=== PATIENT | female | born 1955 | race Caucasian/White ===

== ENCOUNTER 2017-05-16 15:59 | Inpatient (IN) | payer MEDICARE, MEDICAID ==
[~2017-05-16] VITALS: Ht 160 cm; Wt 56.7 kg
--- NOTE | 2017-05-16 16:27 | Emergency Room Report ---
History of Present Illness General Chief Complaint: General Complaint Source: Patient, PMD Present Illness HPI 61-year-old female sent for suspected failure to thrive, low appetite. PMD was also concern for episode of psychoses, patient well known to [facility] psychiatrist Dr. Mckay Patient herself denies any complaints: States she ate multiple meatballs today. Eyes abdominal pain nausea vomiting, urinary complaints, chest pain, shortness of breath. Patient is very calm, cooperative. Does not appear psychotic or altered. Patient ambulate back and forth to the bathroom under her own power Dr. Mckay endorses 30 pound weight loss over the last 2 months. Allergies: Coded Allergies: No Known Allergies (Unverified , 05/16/17) Patient History Past Medical History: psych hx Past Surgical History: none Pertinent Family History: none Social History: Denies: smoking, alcohol use, drug use Now: No Immunizations: UTD Reviewed Nursing Documentation: PMH: Agreed, PSxH: Agreed Review of Systems All Other Systems: negative except mentioned in HPI Physical Exam Vital Signs Date Time Temp Pulse Resp B/P (MAP) Pulse Ox O2 Delivery O2 Flow Rate FiO2 05/16/17 15:58 97.9 70 20 121/69 95 Room Air Sp02 EP Interpretation: reviewed, normal General Appearance: normal inspection, well appearing, no apparent distress, alert, GCS 15, non-toxic Head: normocephalic, atraumatic Eyes: bilateral eye PERRL, bilateral eye EOMI ENT: normal ENT inspection, hearing grossly normal, normal pharynx, no angioedema, normal voice, TMs + canals normal, uvula midline, moist mucus membranes Neck: normal inspection, full range of motion, supple, thyroid normal, no meningismus, no bony tend Respiratory: normal inspection, lungs clear, normal breath sounds, no rhonchi, no respiratory distress, no retraction, no accessory muscle use, no wheezing, speaking full sentences Cardiovascular #1: regular rate, rhythm, no edema, no JVD, normal capillary refill Gastrointestinal: normal inspection, normal bowel sounds, non tender, soft, no mass, no peritonitis, non-distended, no guarding, no hernia, no pulsatile mass Genitourinary: no CVA tenderness Musculoskeletal: normal inspection, back normal, normal range of motion, no calf tenderness, pelvis stable, Rio's Sign negative Neurologic: normal inspection, alert, oriented x3, responsive, pediatric medical assistant III-XII nml as tested, motor strength/tone normal, cerebellar normal, normal gait, speech normal Psychiatric: normal inspection, judgement/insight normal, mood/affect normal, no suicidal/homicidal ideation, no delusions Skin: normal inspection, normal color, no rash Lymphatic: normal inspection, no adenopathy Medical Decision Making Diagnostic Impression: Primary Impression: FTT (failure to thrive) in adult Additional Impression: REEMA (acute kidney injury) ER Course 61-year-old female with a 30 pound weight loss over 2 months vital signs stable, afebrile labs significant only for mild REEMA serum creatinine 1.5 Was given IV fluid hydration ER She remains asymptomatic She is not psychotic, calm and cooperative Endorsed to Dr. Angeles as PMD at 5:20 PM for a Medr bed EKG Diagnostic Results Rate: normal Rhythm: NSR ST Segments: other - Isolated T-wave inversion in V2 ASA given to the pt in ED: No Rhythm Strip Diag. Results EP Interpretation: yes Rate: 63 Rhythm: NSR, no PVC's, no ectopy Last Vital Signs Date Time Temp Pulse Resp B/P (MAP) Pulse Ox O2 Delivery O2 Flow Rate FiO2 05/16/17 15:58 97.9 70 20 121/69 95 Room Air Status: improved Disposition: ADMITTED INPATIENT Condition: Stable VÍCTOR LANZA M.D. May 16, 2017 16:27
[2017-05-16 16:48] LABS: BASOPHILS % (AUTO) 1.3 % (0.0-2.0); EOSINOPHILS % (AUTO) 0.2 % (0.0-3.0); HEMATOCRIT 39.7 % (37.0-47.0); HEMOGLOBIN 13.6 G/DL (12.0-16.0); LYMPHOCYTES % (AUTO) 26.4 % (20.0-45.0); MEAN CORPUSCULAR VOLUME 95 FL (80-99); MONOCYTES % (AUTO) 8.4 % (1.0-10.0); NEUTROPHILS % (AUTO) 63.7 % (45.0-75.0); PLATELET COUNT 165 K/UL (150-450); RED BLOOD COUNT 4.17 M/UL (4.20-5.40); RED CELL DISTRIBUTION WIDTH 11.5 % (11.6-14.8); WHITE BLOOD COUNT 4.2 K/UL (4.8-10.8)
[2017-05-16 16:59] LABS: ANION GAP 6 mmol/L (5-15); BLOOD UREA NITROGEN 26 mg/dL (7-18); CALCIUM 9.2 MG/DL (8.5-10.1); CARBON DIOXIDE 32 MMOL/L (21-32); CHLORIDE 105 MMOL/L (98-107); CREATININE 1.5 MG/DL (0.55-1.30); POTASSIUM 4.7 MMOL/L (3.5-5.1); SODIUM 142 MMOL/L (136-145)
--- NOTE | 2017-05-16 17:00 | Diagnostic Imaging Report ---
Indication: Cough Technique: One view of the chest Comparison: Findings: Lungs and pleural spaces are clear. Heart size is normal Impression: No acute process
[2017-05-16 17:08] VITALS: BP 112/76
[2017-05-16 17:11] LABS: ALANINE AMINOTRANSFERASE 24 U/L (12-78); ALBUMIN 3.9 G/DL (3.4-5.0); ALBUMIN/GLOBULIN RATIO 1.4 (1.0-2.7); ALKALINE PHOSPHATASE 75 U/L (46-116); ASPARTATE AMINO TRANSFERASE 21 U/L (15-37); BILIRUBIN,TOTAL 0.3 MG/DL (0.2-1.0); CKMB 3.6 NG/ML (0.0-3.6); CREATINE KINASE 169 U/L (26-308)
[2017-05-16] MEDS ORDERED: LEVOTHYROXINE50 MCG ORAL (18:00)
[2017-05-16] MEDS ORDERED: FLUPHENAZINE HCL5 MG IM (18:00)
[2017-05-16] MEDS ORDERED: RISPERDAL1 MG PO (18:00)
[2017-05-16] MEDS ORDERED: QUETIAPINE FUM400 MG ORAL (18:00)
[2017-05-16] MEDS ORDERED: ABILIFY20 MG ORAL (18:00)
[2017-05-16] MEDS ORDERED: TEMAZEPAM30 MG ORAL (18:00)
[2017-05-16 18:29] VITALS: BP 111/54
[2017-05-16 20:00] VITALS: BP 97/48
[2017-05-16] MEDS ORDERED: Mylanta II UD 30ml ORAL PRN (21:00)
[2017-05-16] MEDS ORDERED: Morphine Sulfate 2mg/ml Inj IVP PRN (21:00)
[2017-05-16] MEDS ORDERED: Zolpidem 5mg tab ORAL PRN (21:00)
[2017-05-16] MEDS ORDERED: Miralax 17gm pkt ORAL PRN (21:00)
[2017-05-16] MEDS ORDERED: LORazepam Inj 2mg/ml 1ml IV PRN (21:00)
[2017-05-16] MEDS: Heparin 5000 units/ml inj SUBQ SCH (21:46)
[2017-05-17] VITALS: BP 111/63
[2017-05-17 04:00] VITALS: BP 107/60
[2017-05-17 08:06] VITALS: BP 112/71
[2017-05-17] MEDS: Heparin 5000 units/ml inj SUBQ SCH ×2 (09:00→20:04)
[2017-05-17] MEDS ORDERED: ARIPiprazole 10mg tab ORAL SCH (09:00)
[2017-05-17] MEDS ORDERED: QUEtiapine 200mg tab ORAL SCH (09:00)
[2017-05-17 11:49] VITALS: BP 110/54
--- NOTE | 2017-05-17 15:57 | History and Physical ---
History of Present Illness General Date patient seen: May 17, 2017 Reason for Hospitalization: General Complaint Present Illness HPI 61-year-old female with psychiatric disorder sent for suspected failure to thrive, low appetite, 30 pound weight loss over the last 2 months PMD was also concern for episode of psychoses, patient well known to [facility] psychiatrist Dr. Mckay She is admitted for w/u of weight loss and failure to thrive. Her BMI is 22. Allergies: Coded Allergies: No Known Allergies (Unverified , 05/16/17) Medication History Scheduled Aripiprazole* (Abilify*), 20 MG ORAL DAILY, (Reported) Fluphenazine Hcl* (Prolixin*), 25 MG IM EVERY 2 WEEKS, (Reported) Levothyroxine Sodium* (Levothyroxine Sodium*), 50 MCG ORAL DAILY, (Reported) Quetiapine Fumarate* (Quetiapine Fumarate*), 400 MG ORAL DAILY, (Reported) Risperidone* (Risperdal*), 3 MG PO BID, (Reported) Scheduled PRN Temazepam* (Temazepam*), 30 MG ORAL BEDTIME PRN for Insomnia, (Reported) Patient History Healthcare decision maker N Resuscitation status Full Code Advanced Directive on File No Past Medical/Surgical History Past Medical/Surgical History: (1) Psychosis Review of Systems All Other Systems: negative except mentioned in HPI Physical Exam General Appearance: WD/WN Lines, tubes and drains: peripheral HEENT: normocephalic Neck: non-tender, normal alignment Respiratory/Chest: chest wall non-tender, lungs clear Breasts: no masses Cardiovascular/Chest: normal peripheral pulses Abdomen: normal bowel sounds Genitourinary/Rectal: normal genital exam Last 24 Hour Vital Signs Date Time Temp Pulse Resp B/P (MAP) Pulse Ox O2 Delivery O2 Flow Rate FiO2 05/17/17 11:49 97.9 66 21 110/54 97 Room Air 05/17/17 08:06 98.1 71 21 112/71 99 Room Air 05/17/17 04:00 97.4 63 20 107/60 99 05/17/17 00:00 97.7 62 20 111/63 99 05/16/17 20:00 98.1 63 21 97/48 96 05/16/17 18:29 97.6 63 18 111/54 97 Room Air 05/16/17 17:08 99.1 60 18 112/76 100 Room Air 05/16/17 15:58 97.9 70 20 121/69 95 Room Air Intake and Output 05/16/17 05/17/17 19:00 07:00 Intake Total 50 ml Balance 50 ml Intake Oral 50 ml # Voids 1 6 # Bowel Movements 1 Laboratory Tests Test 05/16/17 16:17 05/16/17 16:30 Urine Opiates Screen Negative (NEGATIVE) Urine Barbiturates Screen Negative (NEGATIVE) Phencyclidine (PCP) Screen Negative (NEGATIVE) Urine Amphetamines Screen Negative (NEGATIVE) Urine Benzodiazepines Screen Negative (NEGATIVE) Urine Cocaine Screen Negative (NEGATIVE) Urine Marijuana (THC) Screen Negative (NEGATIVE) White Blood Count 4.2 K/UL (4.8-10.8) L Red Blood Count 4.17 M/UL (4.20-5.40) L Hemoglobin 13.6 G/DL (12.0-16.0) Hematocrit 39.7 % (37.0-47.0) Mean Corpuscular Volume 95 FL (80-99) Mean Corpuscular Hemoglobin 32.7 PG (27.0-31.0) H Mean Corpuscular Hemoglobin Concent 34.4 G/DL (32.0-36.0) Red Cell Distribution Width 11.5 % (11.6-14.8) L Platelet Count 165 K/UL (150-450) Mean Platelet Volume 9.1 FL (6.5-10.1) Neutrophils (%) (Auto) 63.7 % (45.0-75.0) Lymphocytes (%) (Auto) 26.4 % (20.0-45.0) Monocytes (%) (Auto) 8.4 % (1.0-10.0) Eosinophils (%) (Auto) 0.2 % (0.0-3.0) Basophils (%) (Auto) 1.3 % (0.0-2.0) Sodium Level 142 MMOL/L (136-145) Potassium Level 4.7 MMOL/L (3.5-5.1) Chloride Level 105 MMOL/L (98-107) Carbon Dioxide Level 32 MMOL/L (21-32) Anion Gap 6 mmol/L (5-15) Blood Urea Nitrogen 26 mg/dL (7-18) H Creatinine 1.5 MG/DL (0.55-1.30) H Estimat Glomerular Filtration Rate 35.2 mL/min (>60) Glucose Level 98 MG/DL (74-106) Calcium Level 9.2 MG/DL (8.5-10.1) Total Bilirubin 0.3 MG/DL (0.2-1.0) Aspartate Amino Transf (AST/SGOT) 21 U/L (15-37) Alanine Aminotransferase (ALT/SGPT) 24 U/L (12-78) Alkaline Phosphatase 75 U/L (46-116) Total Creatine Kinase 169 U/L (26-308) Creatine Kinase MB 3.6 NG/ML (0.0-3.6) Creatine Kinase MB Relative Index 2.1 Troponin I 0.000 ng/mL (0.000-0.056) Total Protein 6.6 G/DL (6.4-8.2) Albumin 3.9 G/DL (3.4-5.0) Globulin 2.7 g/dL Albumin/Globulin Ratio 1.4 (1.0-2.7) Height (Feet): 5 Height (Inches): 3.00 Weight (Pounds): 125 Medications Current Medications Medications (Trade) Dose Ordered Sig/Ashli Route PRN Reason Start Time Stop Time Status Last Admin Dose Admin Acetaminophen (Tylenol) 650 mg Q4H PRN ORAL fever 05/16/17 21:00 06/15/17 20:59 Al Hydroxide/Mg Hydroxide (Mylanta II) 30 ml Q6H PRN ORAL dyspepsia 05/16/17 21:00 06/15/17 20:59 Dextrose (Dextrose 50%) STAT PRN IV Hypoglycemia 05/16/17 21:00 06/15/17 20:59 Divalproex Sodium (Depakote ER) 1,000 mg QPM ORAL 05/17/17 18:00 06/16/17 20:59 Heparin Sodium (Porcine) (Heparin 5000 units/ml) 5,000 units EVERY 12 HOURS SUBQ 05/16/17 22:00 06/15/17 21:59 05/16/17 21:46 Levothyroxine Sodium (Synthroid) 50 mcg ACBREAKFAST ORAL 05/17/17 06:30 06/16/17 06:29 05/17/17 06:14 Lorazepam (Ativan 2mg/ml 1ml) 0.5 mg Q4H PRN IV For Anxiety 05/16/17 21:00 05/23/17 20:59 Morphine Sulfate (Morphine Sulfate) 1 mg Q4H PRN IVP For Pain Scale 4-10 05/16/17 21:00 05/23/17 20:59 Nicotine (Nicoderm) 1 patch Q24H TDERMAL 05/17/17 12:00 06/16/17 11:59 Olanzapine (ZyPREXA) 15 mg QPM ORAL 05/17/17 18:00 06/16/17 20:59 Ondansetron HCl (Zofran) 4 mg Q6H PRN IVP Nausea & Vomiting 05/16/17 21:00 06/15/17 20:59 Polyethylene Glycol (Miralax) 17 gm HSPRN PRN ORAL Constipation 05/16/17 21:00 06/15/17 20:59 Assessment/Plan Problem List: (1) Psychosis ICD Codes: F29 - Unspecified psychosis not due to a substance or known physiological condition SNOMED: 98276693 (2) REEMA (acute kidney injury) ICD Codes: N17.9 - Acute kidney failure, unspecified SNOMED: 64909829 (3) FTT (failure to thrive) in adult ICD Codes: R62.7 - Adult failure to thrive SNOMED: 140344896 (4) Encounter for generalized patient complaints ICD Codes: Z00.8 - Encounter for other general examination SNOMED: 011340952 Assessment/Plan calorie count GI evaluation psych evaluaton renal studies. WILBUR LOPES May 17, 2017 15:57
[2017-05-17 15:58] VITALS: BP 120/77
--- NOTE | 2017-05-17 16:18 | Consultation ---
History of Present Illness General Date patient seen: May 17, 2017 Chief Complaint: General Complaint Present Illness HPI 61-year-old female sent for suspected failure to thrive, low appetite, schizophrenia and mood lability was admitted due to lack of appetite and weight loss. The pt was observed eating. the pt has cognitive impairment and is a poor historian. the pt is delusional and is denying depressive sxs. no si/hi. Allergies: Coded Allergies: No Known Allergies (Unverified , 05/16/17) Medication History Scheduled Aripiprazole* (Abilify*), 20 MG ORAL DAILY, (Reported) Fluphenazine Hcl* (Prolixin*), 25 MG IM EVERY 2 WEEKS, (Reported) Levothyroxine Sodium* (Levothyroxine Sodium*), 50 MCG ORAL DAILY, (Reported) Quetiapine Fumarate* (Quetiapine Fumarate*), 400 MG ORAL DAILY, (Reported) Risperidone* (Risperdal*), 3 MG PO BID, (Reported) Scheduled PRN Temazepam* (Temazepam*), 30 MG ORAL BEDTIME PRN for Insomnia, (Reported) Patient History History Provided By: Patient, Medical Record, PMD Healthcare decision maker N Resuscitation status Full Code Advanced Directive on File No Past Medical/Surgical History Past Medical/Surgical History: (1) Encounter for generalized patient complaints (2) REEMA (acute kidney injury) (3) Psychosis (4) FTT (failure to thrive) in adult Review of Systems Psychiatric: Reports: prior hx, anxiety, depressed feelings, emotional problems , hallucinations Physical Exam General Appearance: WD/WN, no apparent distress, alert, thin Neurologic: alert, oriented x 3, responsive, depressed affect Last 24 Hour Vital Signs Date Time Temp Pulse Resp B/P (MAP) Pulse Ox O2 Delivery O2 Flow Rate FiO2 05/17/17 15:58 98.1 69 19 120/77 97 05/17/17 11:49 97.9 66 21 110/54 97 Room Air 05/17/17 08:06 98.1 71 21 112/71 99 Room Air 05/17/17 04:00 97.4 63 20 107/60 99 05/17/17 00:00 97.7 62 20 111/63 99 05/16/17 20:00 98.1 63 21 97/48 96 05/16/17 18:29 97.6 63 18 111/54 97 Room Air 05/16/17 17:08 99.1 60 18 112/76 100 Room Air Intake and Output 05/16/17 05/17/17 19:00 07:00 Intake Total 50 ml Balance 50 ml Intake Oral 50 ml # Voids 1 6 # Bowel Movements 1 Laboratory Tests Test 05/16/17 16:17 05/16/17 16:30 Urine Opiates Screen Negative (NEGATIVE) Urine Barbiturates Screen Negative (NEGATIVE) Phencyclidine (PCP) Screen Negative (NEGATIVE) Urine Amphetamines Screen Negative (NEGATIVE) Urine Benzodiazepines Screen Negative (NEGATIVE) Urine Cocaine Screen Negative (NEGATIVE) Urine Marijuana (THC) Screen Negative (NEGATIVE) White Blood Count 4.2 K/UL (4.8-10.8) L Red Blood Count 4.17 M/UL (4.20-5.40) L Hemoglobin 13.6 G/DL (12.0-16.0) Hematocrit 39.7 % (37.0-47.0) Mean Corpuscular Volume 95 FL (80-99) Mean Corpuscular Hemoglobin 32.7 PG (27.0-31.0) H Mean Corpuscular Hemoglobin Concent 34.4 G/DL (32.0-36.0) Red Cell Distribution Width 11.5 % (11.6-14.8) L Platelet Count 165 K/UL (150-450) Mean Platelet Volume 9.1 FL (6.5-10.1) Neutrophils (%) (Auto) 63.7 % (45.0-75.0) Lymphocytes (%) (Auto) 26.4 % (20.0-45.0) Monocytes (%) (Auto) 8.4 % (1.0-10.0) Eosinophils (%) (Auto) 0.2 % (0.0-3.0) Basophils (%) (Auto) 1.3 % (0.0-2.0) Sodium Level 142 MMOL/L (136-145) Potassium Level 4.7 MMOL/L (3.5-5.1) Chloride Level 105 MMOL/L (98-107) Carbon Dioxide Level 32 MMOL/L (21-32) Anion Gap 6 mmol/L (5-15) Blood Urea Nitrogen 26 mg/dL (7-18) H Creatinine 1.5 MG/DL (0.55-1.30) H Estimat Glomerular Filtration Rate 35.2 mL/min (>60) Glucose Level 98 MG/DL (74-106) Calcium Level 9.2 MG/DL (8.5-10.1) Total Bilirubin 0.3 MG/DL (0.2-1.0) Aspartate Amino Transf (AST/SGOT) 21 U/L (15-37) Alanine Aminotransferase (ALT/SGPT) 24 U/L (12-78) Alkaline Phosphatase 75 U/L (46-116) Total Creatine Kinase 169 U/L (26-308) Creatine Kinase MB 3.6 NG/ML (0.0-3.6) Creatine Kinase MB Relative Index 2.1 Troponin I 0.000 ng/mL (0.000-0.056) Total Protein 6.6 G/DL (6.4-8.2) Albumin 3.9 G/DL (3.4-5.0) Globulin 2.7 g/dL Albumin/Globulin Ratio 1.4 (1.0-2.7) Height (Feet): 5 Height (Inches): 3.00 Weight (Pounds): 125 Medications Current Medications Medications (Trade) Dose Ordered Sig/Ashli Route PRN Reason Start Time Stop Time Status Last Admin Dose Admin Acetaminophen (Tylenol) 650 mg Q4H PRN ORAL fever 05/16/17 21:00 06/15/17 20:59 Al Hydroxide/Mg Hydroxide (Mylanta II) 30 ml Q6H PRN ORAL dyspepsia 05/16/17 21:00 06/15/17 20:59 Dextrose (Dextrose 50%) STAT PRN IV Hypoglycemia 05/16/17 21:00 06/15/17 20:59 Divalproex Sodium (Depakote ER) 1,000 mg QPM ORAL 05/17/17 18:00 06/16/17 20:59 Heparin Sodium (Porcine) (Heparin 5000 units/ml) 5,000 units EVERY 12 HOURS SUBQ 05/16/17 22:00 06/15/17 21:59 05/16/17 21:46 Levothyroxine Sodium (Synthroid) 50 mcg ACBREAKFAST ORAL 05/17/17 06:30 06/16/17 06:29 05/17/17 06:14 Lorazepam (Ativan 2mg/ml 1ml) 0.5 mg Q4H PRN IV For Anxiety 05/16/17 21:00 05/23/17 20:59 Morphine Sulfate (Morphine Sulfate) 1 mg Q4H PRN IVP For Pain Scale 4-10 05/16/17 21:00 05/23/17 20:59 Nicotine (Nicoderm) 1 patch Q24H TDERMAL 05/17/17 12:00 06/16/17 11:59 Olanzapine (ZyPREXA) 15 mg QPM ORAL 05/17/17 18:00 06/16/17 20:59 Ondansetron HCl (Zofran) 4 mg Q6H PRN IVP Nausea & Vomiting 05/16/17 21:00 06/15/17 20:59 Polyethylene Glycol (Miralax) 17 gm HSPRN PRN ORAL Constipation 05/16/17 21:00 06/15/17 20:59 Assessment/Plan Status: unchanged Assessment/Plan schizoaffective d/o failure to thrive -depakote er 1000mg qhs -zyprexa 15mg qhs -dc seroMadonna Mac M.D. May 17, 2017 16:17
--- NOTE | 2017-05-17 16:40 | GI Initial Consult Note ---
Malinda Garcia NShiraPShira 05/17/17 1640: History of Present Illness General Date patient seen: May 17, 2017 Time patient seen: 11:00 Reason for Hospitalization: General Complaint Referring physician: WILBUR ERIC Reason for Consultation: FTT Present Illness HPI 61-year-old female sent for suspected failure to thrive, low appetite. PMD was also concern for episode of psychoses, patient well known to [place] psychiatrist Dr. Mckay Patient herself denies any complaints: States she ate multiple meatballs today. Denies abdominal pain nausea vomiting, urinary complaints, chest pain, shortness of breath. Patient is very calm, cooperative. Does not appear psychotic or altered. Patient ambulate back and forth to the bathroom under her own power Dr. Mckay endorses 30 pound weight loss over the last 2 months. GI consulted for FTT. HPI noted above. Pt seen on floor, awake A&Ox4 NAD with no active s/sx of N/V/D. Patient denies any abdominal pain, reported to have eaten 100% of her breakfast. Ambulatory. Unknown history of endoscopy/ colonoscopy. Home Meds Reported Medications Divalproex Sodium (Depakote) 500 Mg Tablet.dr, 1000 MG PO QHS, TAB 05/19/17 Olanzapine* (ZYPREXA*) 10 Mg Tablet, 20 MG ORAL QHS, #30 TAB 0 Refills 05/19/17 Fluphenazine Hcl* (PROLIXIN*) 5 Mg Tablet, 25 MG IM EVERY 2 WEEKS, #10 TAB 0 Refills 05/16/17 Risperidone* (RISPERDAL*) 1 Mg Tablet, 3 MG PO BID, TAB 05/16/17 Aripiprazole* (ABILIFY*) 20 Mg Tablet, 20 MG ORAL DAILY, TAB 05/16/17 Temazepam* (TEMAZEPAM*) 30 Mg Capsule, 30 MG ORAL BEDTIME Y for Insomnia, CAP 05/16/17 Quetiapine Fumarate* (QUETIAPINE FUMARATE*) 400 Mg Tablet, 400 MG ORAL DAILY, TAB 05/16/17 Levothyroxine Sodium* (LEVOTHYROXINE SODIUM*) 50 Mcg Tablet, 50 MCG ORAL DAILY, TAB Take in the morning on an empty stomach, at least 30 minutes before food. 05/16/17 Med list reviewed/reconciled: Yes Allergies: Coded Allergies: No Known Allergies (Unverified , 05/16/17) Patient History Limited by: medical condition History Provided By: Patient, Medical Record PMH Narrative Past Medical History: psych hx Past Surgical History: none Pertinent Family History: none Social History: Denies: smoking, alcohol use, drug use Now: No Immunizations: UTD Reviewed Nursing Documentation: PMH: Agreed, PSxH: Agreed Social History: Reports: smoking Review of Systems All Other Systems: negative except mentioned in HPI Physical Exam Vital Signs Date Time Temp Pulse Resp B/P (MAP) Pulse Ox O2 Delivery O2 Flow Rate FiO2 05/16/17 15:58 97.9 70 20 121/69 95 Room Air Sp02 EP Interpretation: reviewed, normal Labs Laboratory Tests Test 05/17/17 16:18 Urine Color Pending Urine Appearance Pending Urine pH Pending Urine Specific [place] Pending Urine Protein Pending Urine Glucose (UA) Pending Urine Ketones Pending Urine Occult Blood Pending Urine Nitrite Pending Urine Bilirubin Pending Urine Urobilinogen Pending Urine Leukocyte Esterase Pending Urine RBC Pending Urine WBC Pending Urine Squamous Epithelial Cells Pending Urine Bacteria Pending Urine Eosinophils Pending Urine Random Sodium Pending Urine Potassium Timed Pending General Appearance: well appearing, no apparent distress, alert Head: normocephalic EENT: PERRL/EOMI, normal ENT inspection Neck: supple Respiratory: normal breath sounds, no respiratory distress Cardiovascular: normal rate Gastrointestinal: normal inspection, non tender, soft, normal bowel sounds, non -distended Rectal: deferred Genitourinary: no CVA tenderness Musculoskeletal: normal inspection, back normal Neurologic: normal inspection, alert, oriented x3, responsive Psychiatric: normal inspection, judgement/insight normal, memory normal Skin: normal inspection, normal color, no rash, warm/dry, palpation normal, well hydrated Lymphatic: normal inspection, no adenopathy Current Medications Current Medications Medications (Trade) Dose Ordered Sig/Ashli Route PRN Reason Start Time Stop Time Status Last Admin Dose Admin Acetaminophen (Tylenol) 650 mg Q4H PRN ORAL fever 05/16/17 21:00 06/15/17 20:59 Al Hydroxide/Mg Hydroxide (Mylanta II) 30 ml Q6H PRN ORAL dyspepsia 05/16/17 21:00 06/15/17 20:59 Dextrose (Dextrose 50%) STAT PRN IV Hypoglycemia 05/16/17 21:00 06/15/17 20:59 Divalproex Sodium (Depakote ER) 1,000 mg QPM ORAL 05/17/17 18:00 06/16/17 20:59 Heparin Sodium (Porcine) (Heparin 5000 units/ml) 5,000 units EVERY 12 HOURS SUBQ 05/16/17 22:00 06/15/17 21:59 05/16/17 21:46 Levothyroxine Sodium (Synthroid) 50 mcg ACBREAKFAST ORAL 05/17/17 06:30 06/16/17 06:29 05/17/17 06:14 Lorazepam (Ativan 2mg/ml 1ml) 0.5 mg Q4H PRN IV For Anxiety 05/16/17 21:00 05/23/17 20:59 Morphine Sulfate (Morphine Sulfate) 1 mg Q4H PRN IVP For Pain Scale 4-10 05/16/17 21:00 05/23/17 20:59 Nicotine (Nicoderm) 1 patch Q24H TDERMAL 05/17/17 12:00 06/16/17 11:59 Olanzapine (ZyPREXA) 15 mg QPM ORAL 05/17/17 18:00 06/16/17 20:59 Ondansetron HCl (Zofran) 4 mg Q6H PRN IVP Nausea & Vomiting 05/16/17 21:00 06/15/17 20:59 Polyethylene Glycol (Miralax) 17 gm HSPRN PRN ORAL Constipation 05/16/17 21:00 06/15/17 20:59 GI: Plan Problems: (1) FTT (failure to thrive) in adult Plan utox negative symptomatic treatment fu calorie count push PO electrolyte correction fu labs, CEA Discussed with Dr. Treviño. Thank you for this patient referral, we will follow. JOSE TREVIÑO 05/21/17 1413: History of Present Illness General Reason for Hospitalization: General Complaint Present Illness Home Meds Reported Medications Divalproex Sodium (Depakote) 500 Mg Tablet., 1000 MG PO QHS, TAB 05/19/17 Olanzapine* (ZYPREXA*) 10 Mg Tablet, 20 MG ORAL QHS, #30 TAB 0 Refills 05/19/17 Fluphenazine Hcl* (PROLIXIN*) 5 Mg Tablet, 25 MG IM EVERY 2 WEEKS, #10 TAB 0 Refills 05/16/17 Risperidone* (RISPERDAL*) 1 Mg Tablet, 3 MG PO BID, TAB 05/16/17 Aripiprazole* (ABILIFY*) 20 Mg Tablet, 20 MG ORAL DAILY, TAB 05/16/17 Temazepam* (TEMAZEPAM*) 30 Mg Capsule, 30 MG ORAL BEDTIME Y for Insomnia, CAP 05/16/17 Quetiapine Fumarate* (QUETIAPINE FUMARATE*) 400 Mg Tablet, 400 MG ORAL DAILY, TAB 05/16/17 Levothyroxine Sodium* (LEVOTHYROXINE SODIUM*) 50 Mcg Tablet, 50 MCG ORAL DAILY, TAB Take in the morning on an empty stomach, at least 30 minutes before food. 05/16/17 Allergies: Coded Allergies: No Known Allergies (Unverified , 05/16/17) GI: Plan Plan The patient was seen and examined at bedside and all new and available data was reviewed in the patients chart. I agree with the above findings, impression and plan. (Patient seen earlier today. Signature stamp does not reflect patient encounter time.). - MD Radha Kumar Anh Austin Wynn May 17, 2017 16:40 JOSE TREVIÑO May 21, 2017 14:13
[2017-05-17 16:50] LABS: APPEARANCE,URINE CLEAR; BILIRUBIN, URINE NEGATIVE (NEGATIVE); COLOR,URINE PALE YELLOW; GLUCOSE, URINE (UA) NEGATIVE (NEGATIVE); KETONES,URINE NEGATIVE (NEGATIVE); LEUKOCYTE ESTERASE ,URINE 3+ (NEGATIVE); NITRITE,URINE NEGATIVE (NEGATIVE); PH,URINE 6 (4.5-8.0); PROTEIN,URINE NEGATIVE (NEGATIVE); UROBILINOGEN,URINE NORMAL MG/DL (0.0-1.0)
[2017-05-17] MEDS: Depakote ER 250mg tab ORAL SCH (17:46)
[2017-05-17 20:00] VITALS: BP 108/66
[2017-05-17] MEDS ORDERED: Depakote ER 250mg tab ORAL SCH (21:00)
[2017-05-18] VITALS: BP 113/65
[2017-05-18 04:00] VITALS: BP 127/71
[2017-05-18 08:00] VITALS: BP 119/70
--- NOTE | 2017-05-18 08:32 | Diagnostic Imaging Report ---
Indication: Abdominal pain, stage I chronic renal failure Technique: Grayscale and duplex images of the kidneys, retroperitoneum, and bladder were obtained. Comparison: none Findings: Exam is limited due to suboptimal patient cooperation. Right kidney measures 10.3 cm in length. Left kidney could not be visualized, obscured by bowel gas.. Right kidney demonstrates normal echogenicity. No hydronephrosis. A few cysts measuring up to 19 mm diameter seen in the right kidney. Possible calyceal calcifications versus artifact seen in the right kidney. Normal inferior vena cava. Bladder is normal. Postvoid bladder volume could not be measured as patient did not wish to void. Prevoid volume 72 mL Impression: Limited exam, due to nonvisualization of the left kidney Negative for right hydronephrosis Incidental finding right renal cysts. Questionable renal parenchymal calcifications, versus artifacts.
[2017-05-18] MEDS: Heparin 5000 units/ml inj SUBQ SCH ×2 (09:00→20:02)
--- NOTE | 2017-05-18 11:52 | GI Progress Note ---
Assessment/Plan Problems: (1) Encounter for generalized patient complaints ICD Codes: Z00.8 - Encounter for other general examination SNOMED: 676322556 (2) FTT (failure to thrive) in adult ICD Codes: R62.7 - Adult failure to thrive SNOMED: 189881953 (3) Psychosis ICD Codes: F29 - Unspecified psychosis not due to a substance or known physiological condition SNOMED: 13776108 Status: stable Status Narrative Discussed with Dr. Little. Assessment/Plan refused labs utox negative symptomatic treatment >> okay for DC per GI standpoint fu calorie count >> has eaten 100% of all her meals push PO electrolyte correction fu labs, CEA Subjective Gastrointestinal/Abdominal: Reports: no symptoms Objective Last 24 Hour Vital Signs Date Time Temp Pulse Resp B/P (MAP) Pulse Ox O2 Delivery O2 Flow Rate FiO2 05/18/17 08:00 98.2 67 20 119/70 98 Room Air 05/18/17 04:00 98.2 68 20 127/71 98 Room Air 05/18/17 00:00 98.8 61 19 113/65 97 Room Air 05/17/17 20:00 98.5 60 19 108/66 99 Room Air 05/17/17 15:58 98.1 69 19 120/77 97 Intake and Output 05/17/17 05/18/17 19:00 07:00 Intake Total 720 ml 500 ml Balance 720 ml 500 ml Intake Oral 720 ml 500 ml # Voids 4 Laboratory Tests Test 05/17/17 16:18 Urine Color Pale yellow Urine Appearance Clear Urine pH 6 (4.5-8.0) Urine Specific [place] 1.010 (1.005-1.035) Urine Protein Negative (NEGATIVE) Urine Glucose (UA) Negative (NEGATIVE) Urine Ketones Negative (NEGATIVE) Urine Occult Blood 1+ (NEGATIVE) H Urine Nitrite Negative (NEGATIVE) Urine Bilirubin Negative (NEGATIVE) Urine Urobilinogen Normal MG/DL (0.0-1.0) Urine Leukocyte Esterase 3+ (NEGATIVE) H Urine RBC 2-4 /HPF (0 - 2) H Urine WBC 5-10 /HPF (0 - 2) H Urine Squamous Epithelial Cells Few /LPF (NONE/OCC) Urine Bacteria Few /HPF (NONE) Urine Eosinophils None seen Urine Random Sodium 50 MEQ/L (20-110) Urine Potassium Timed 19 mmol/L (12-62) Height (Feet): 5 Height (Inches): 3.00 Weight (Pounds): 125 General Appearance: WD/WN, no apparent distress, alert, thin Cardiovascular: normal rate Respiratory/Chest: normal breath sounds, no respiratory distress Abdominal Exam: normal bowel sounds, non tender, soft Extremities: normal range of motion, non-tender Malinda Garcia N.P. May 18, 2017 11:52
[2017-05-18 12:00] VITALS: BP 117/69
--- NOTE | 2017-05-18 15:07 | Pulmonology Progress Note ---
Assessment/Plan Problems: (1) Psychosis (2) REEMA (acute kidney injury) (3) FTT (failure to thrive) in adult (4) Encounter for generalized patient complaints Assessment/Plan all work up negative so far symptomatic treatment check electrolyes dc planning for today Subjective ROS Limited/Unobtainable: No Constitutional: Reports: no symptoms HEENT: Repors: no symptoms Respiratory: Reports: no symptoms Allergies: Coded Allergies: No Known Allergies (Unverified , 05/16/17) Objective Last 24 Hour Vital Signs Date Time Temp Pulse Resp B/P (MAP) Pulse Ox O2 Delivery O2 Flow Rate FiO2 05/18/17 12:00 98.4 72 20 117/69 99 Room Air 05/18/17 08:00 98.2 67 20 119/70 98 Room Air 05/18/17 04:00 98.2 68 20 127/71 98 Room Air 05/18/17 00:00 98.8 61 19 113/65 97 Room Air 05/17/17 20:00 98.5 60 19 108/66 99 Room Air 05/17/17 15:58 98.1 69 19 120/77 97 Intake and Output 05/17/17 05/18/17 19:00 07:00 Intake Total 720 ml 500 ml Balance 720 ml 500 ml Intake Oral 720 ml 500 ml # Voids 4 General Appearance: WD/WN HEENT: normocephalic, anicteric Respiratory/Chest: chest wall non-tender, lungs clear Breasts: no masses Cardiovascular: normal rate Abdomen: normal bowel sounds, no organomegaly Extremities: no cyanosis Neurologic/Psychiatric: no motor/sensory deficits, alert Lymphatic: no groin adenopathy Laboratory Tests 05/17/17 16:18: Urine Color Pale yellow, Urine Appearance Clear, Urine pH 6, Urine Specific [place] 1.010, Urine Protein Negative, Urine Glucose (UA) Negative, Urine Ketones Negative, Urine Occult Blood 1+H, Urine Nitrite Negative, Urine Bilirubin Negative, Urine Urobilinogen Normal, Urine Leukocyte Esterase 3+H, Urine RBC 2-4H, Urine WBC 5-10H, Urine Squamous Epithelial Cells Few, Urine Bacteria Few, Urine Eosinophils None seen, Urine Random Sodium 50, Urine Potassium Timed 19 Current Medications Medications (Trade) Dose Ordered Sig/Ashli Route PRN Reason Start Time Stop Time Status Last Admin Dose Admin Acetaminophen (Tylenol) 650 mg Q4H PRN ORAL fever 05/16/17 21:00 06/15/17 20:59 Al Hydroxide/Mg Hydroxide (Mylanta II) 30 ml Q6H PRN ORAL dyspepsia 05/16/17 21:00 06/15/17 20:59 Dextrose (Dextrose 50%) STAT PRN IV Hypoglycemia 05/16/17 21:00 06/15/17 20:59 Divalproex Sodium (Depakote ER) 1,000 mg QPM ORAL 05/17/17 18:00 06/16/17 20:59 05/17/17 17:46 Heparin Sodium (Porcine) (Heparin 5000 units/ml) 5,000 units EVERY 12 HOURS SUBQ 05/16/17 22:00 06/15/17 21:59 05/17/17 20:04 Levothyroxine Sodium (Synthroid) 50 mcg ACBREAKFAST ORAL 05/17/17 06:30 06/16/17 06:29 05/18/17 05:42 Lorazepam (Ativan 2mg/ml 1ml) 0.5 mg Q4H PRN IV For Anxiety 05/16/17 21:00 05/23/17 20:59 Morphine Sulfate (Morphine Sulfate) 1 mg Q4H PRN IVP For Pain Scale 4-10 05/16/17 21:00 05/23/17 20:59 Nicotine (Nicoderm) 1 patch Q24H TDERMAL 05/17/17 12:00 06/16/17 11:59 Olanzapine (ZyPREXA) 15 mg QPM ORAL 05/17/17 18:00 06/16/17 20:59 05/17/17 17:45 Ondansetron HCl (Zofran) 4 mg Q6H PRN IVP Nausea & Vomiting 05/16/17 21:00 06/15/17 20:59 Polyethylene Glycol (Miralax) 17 gm HSPRN PRN ORAL Constipation 05/16/17 21:00 06/15/17 20:59 WILBUR LOPES May 18, 2017 15:07
[2017-05-18 16:00] VITALS: BP 120/74
--- NOTE | 2017-05-18 16:27 | General Progress Note ---
Assessment/Plan Status: stable Assessment/Plan schizoaffective d/o failure to thrive -zyprexa 15mg po qhs -depakote 1000mg qhs Subjective Date patient seen: May 18, 2017 Neurologic/Psychiatric: Reports: anxiety, emotional problems Allergies: Coded Allergies: No Known Allergies (Unverified , 05/16/17) Objective Last 24 Hour Vital Signs Date Time Temp Pulse Resp B/P (MAP) Pulse Ox O2 Delivery O2 Flow Rate FiO2 05/18/17 12:00 98.4 72 20 117/69 99 Room Air 05/18/17 08:00 98.2 67 20 119/70 98 Room Air 05/18/17 04:00 98.2 68 20 127/71 98 Room Air 05/18/17 00:00 98.8 61 19 113/65 97 Room Air 05/17/17 20:00 98.5 60 19 108/66 99 Room Air Intake and Output 05/17/17 05/18/17 19:00 07:00 Intake Total 720 ml 500 ml Balance 720 ml 500 ml Intake Oral 720 ml 500 ml # Voids 4 Height (Feet): 5 Height (Inches): 3.00 Weight (Pounds): 125 General Appearance: no apparent distress, alert Neurologic: alert, oriented x 3, responsive, depressed affect Madonna Mckay M.D. May 18, 2017 16:26
[2017-05-18] MEDS: Depakote ER 250mg tab ORAL SCH (16:29)
[2017-05-18 20:00] VITALS: BP 119/66
[2017-05-19] VITALS: BP 102/70
[2017-05-19 08:00] VITALS: BP 111/67
[2017-05-19] MEDS ORDERED: ZYPREXA10 MG ORAL (08:03)
[2017-05-19] MEDS ORDERED: DEPAKOTE500 MG PO (08:04)
[2017-05-19] MEDS: Heparin 5000 units/ml inj SUBQ SCH (08:44)
--- NOTE | 2017-05-19 09:50 | Pulmonology Progress Note ---
Assessment/Plan Problems: (1) Psychosis (2) REEMA (acute kidney injury) (3) FTT (failure to thrive) in adult (4) Encounter for generalized patient complaints Assessment/Plan all work up negative so far symptomatic treatment check electrolyes dc planning for today Subjective ROS Limited/Unobtainable: No Allergies: Coded Allergies: No Known Allergies (Unverified , 05/16/17) Objective Last 24 Hour Vital Signs Date Time Temp Pulse Resp B/P (MAP) Pulse Ox O2 Delivery O2 Flow Rate FiO2 05/19/17 08:00 97.9 70 20 111/67 100 05/19/17 00:00 97.6 65 20 102/70 98 Room Air 05/18/17 20:00 97.0 60 20 119/66 96 Room Air 05/18/17 16:00 98.2 67 20 120/74 100 Room Air 05/18/17 12:00 98.4 72 20 117/69 99 Room Air Intake and Output 05/18/17 05/19/17 19:00 07:00 Intake Total 1500 ml 500 ml Balance 1500 ml 500 ml Intake Oral 1500 ml 500 ml # Voids 4 3 # Bowel Movements 1 Objective General Appearance: WD/WN Lines, tubes and drains: peripheral HEENT: normocephalic, atraumatic Neck: non-tender, normal alignment Respiratory/Chest: chest wall non-tender, lungs clear Breasts: no masses Cardiovascular/Chest: normal peripheral pulses Abdomen: normal bowel sounds, non tender Genitourinary/Rectal: normal genital exam, normal rectal exam Extremities: normal range of motion, non-tender Skin Exam: normal pigmentation Neurologic: car dealer II-XII grossly normal Current Medications Medications (Trade) Dose Ordered Sig/Ashli Route PRN Reason Start Time Stop Time Status Last Admin Dose Admin Acetaminophen (Tylenol) 650 mg Q4H PRN ORAL fever 05/16/17 21:00 06/15/17 20:59 Al Hydroxide/Mg Hydroxide (Mylanta II) 30 ml Q6H PRN ORAL dyspepsia 05/16/17 21:00 06/15/17 20:59 Dextrose (Dextrose 50%) STAT PRN IV Hypoglycemia 05/16/17 21:00 06/15/17 20:59 Divalproex Sodium (Depakote ER) 1,000 mg QPM ORAL 05/17/17 18:00 06/16/17 20:59 05/18/17 16:29 Heparin Sodium (Porcine) (Heparin 5000 units/ml) 5,000 units EVERY 12 HOURS SUBQ 05/16/17 22:00 06/15/17 21:59 05/18/17 20:02 Levothyroxine Sodium (Synthroid) 50 mcg ACBREAKFAST ORAL 05/17/17 06:30 06/16/17 06:29 05/19/17 05:46 Lorazepam (Ativan 2mg/ml 1ml) 0.5 mg Q4H PRN IV For Anxiety 05/16/17 21:00 05/23/17 20:59 Morphine Sulfate (Morphine Sulfate) 1 mg Q4H PRN IVP For Pain Scale 4-10 05/16/17 21:00 05/23/17 20:59 Nicotine (Nicoderm) 1 patch Q24H TDERMAL 05/17/17 12:00 06/16/17 11:59 Olanzapine (ZyPREXA) 15 mg QPM ORAL 05/17/17 18:00 06/16/17 20:59 05/18/17 16:29 Ondansetron HCl (Zofran) 4 mg Q6H PRN IVP Nausea & Vomiting 05/16/17 21:00 06/15/17 20:59 Polyethylene Glycol (Miralax) 17 gm HSPRN PRN ORAL Constipation 05/16/17 21:00 06/15/17 20:59 WILBUR LOPES May 19, 2017 09:50
--- NOTE | 2017-05-21 13:48 | Discharge Summary ---
Discharge Summary Hospital Course Date of Admission May 16, 2017 at 17:07 Date of Discharge May 19, 2017 at 11:21 Admitting Diagnosis FAILURE TO THRIVE HPI Briseyda Edgar is a 61 year old female who was admitted on May 16, 2017 at 17: 07 for Failure To Thrive Hospital Course dc summary #[id number] Discharge Medications Continued Medications: Aripiprazole* (Abilify*) 20 Mg Tablet 20 MG ORAL DAILY, TAB Divalproex Sodium (Depakote) 500 Mg Tablet.dr 1000 MG PO QHS, TAB Levothyroxine Sodium* (Levothyroxine Sodium*) 50 Mcg Tablet 50 MCG ORAL DAILY, TAB Take in the morning on an empty stomach, at least 30 minutes before food. Olanzapine* (Zyprexa*) 10 Mg Tablet 20 MG ORAL QHS, #30 TAB 0 Refills Quetiapine Fumarate* (Quetiapine Fumarate*) 400 Mg Tablet 400 MG ORAL DAILY, TAB Risperidone* (Risperdal*) 1 Mg Tablet 3 MG PO BID, TAB Temazepam* (Temazepam*) 30 Mg Capsule 30 MG ORAL BEDTIME PRN for Insomnia, CAP Discharge Condition Upon Discharge: stable Discharge Disposition Patient was discharged to [facility] (01) Discharge Diagnoses: Discharge Instructions Discharge Instructions Special Instructions I have been assigned to complete a D/C Summary on this account. I was not involved in the patient management Lisa Vanegas NP (Vanchtein) May 21, 2017 13:48
--- NOTE | 2017-05-21 22:28 | General Progress Note ---
Assessment/Plan Status: stable, progressing Assessment/Plan schizoaffective d/o failure to thrive -zyprexa 15mg po qhs -depakote 1000mg qhs Subjective Date patient seen: May 19, 2017 Neurologic/Psychiatric: Reports: anxiety, depressed, emotional problems Allergies: Coded Allergies: No Known Allergies (Unverified , 05/16/17) Objective Height (Feet): 5 Height (Inches): 3.00 Weight (Pounds): 125 General Appearance: no apparent distress, alert Neurologic: alert, oriented x 3, responsive, depressed affect Madonna Mckay M.D. May 21, 2017 22:28
--- NOTE | 2017-05-22 04:45 | Discharge Summary 2 SIG ---
DATE OF ADMISSION: 05/16/2017 DATE OF DISCHARGE: 05/19/2017 REASON FOR ADMISSION: 61-year-old female with history of schizoaffective disorder, was sent from the [facility] for suspected failure to thrive and low appetite. The patient herself denied any complaints.She denied abdominal pain, nausea, vomiting, urinary complaints, chest pain, or shortness of breath. She did not appear to be psychotic or altered, however, her psychiatrist endorsed weight loss over the last few months. Workup in the emergency room revealed stable vital signs, however, BUN - 26 and creatinine- 1.5. EKG showed normal sinus rhythm with isolated T-wave inversion in V2. Troponin negative. Chest x-ray revealed no acute injury. Urine toxicology screen was negative. Urinalysis was negative.The patient was admitted with failure to thrive and acute kidney injury. HOSPITAL COURSE: The patient admitted. The patient started on IV hydration and calorie count. GI and Psychiatry consults were requested. Renal ultrasound was unable to visualize left kidney obscured by the bowel gas, however, right kidney demonstrated normal echogenicity and no hydronephrosis. Calorie count was implemented. The patient consumed 100% of the meals. Electrolytes were closely monitored and corrected as needed. GI closely followed the patient. Oral fluids were pushed. CEA was ordered. The patient later denied any further laboratories. Psychiatrist had seen and evaluated the patient , diagnosed the patient with schizoaffective disorder and optimized her psychiatric medication regimen. The patient was treated symptomatically. All workup was negative. The patient was working with PT, OT, and ST, but refused blood draw. The patient was stable to return to [facility]. FINAL DIAGNOSES: 1. Psychosis. 2. Schizoaffective disorder. 3. Failure to thrive. 4. Acute kidney injury. 5. Encounter for generalized weakness. DISCHARGE MEDICATIONS: See medication reconciliation list. DISCHARGE INSTRUCTIONS: The patient discharged to [facility]. Follow up with medical doctor at the facility. Vilma Angeles M.D. I have been assigned to dictate discharge summary on this account and I was not involved in the patient's management. Lisa Vanegas N.P. (Vanchtein) DR: SOFYA JOB#: [id number] CC: OLIVE
--- NOTE | 2017-05-27 17:00 | Cardiology Report ---
APPROVED REPORT EKG Measurement Heart [id number] Normal sinus rhythm Nonspecific ST abnormality Abnormal ECG
== END 2017-05-19 11:21 | disposition home or self-care (01) | DRG 684 ==
LOC: EDBD 15:59 → EMR 16:45 → 4E 17:07 → EDBEDREQ 17:19
DX: N17.9 Acute kidney failure, unspecified (principal); F25.9 Schizoaffective disorder, unspecified; R62.7 Adult failure to thrive
CPT/HCPCS: 36415; 71045; 76775; 80053; 80307; 81001; 82550; 82553; 84133; 84300; 84484; 85025; 89050; 93005; 99285